=== PATIENT | male | born 1970 | race Caucasian/White ===

== ENCOUNTER 2016-10-11 15:08 | Day surgery (SDC) | payer OTHER ==
--- NOTE | 2016-10-11 08:51 | HP ---
ADMISSION DIAGNOSIS: Lesion right upper lip. ANTICIPATED PROCEDURE: Excision. 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 PAST MEDICAL HISTORY: ALLERGIES: None. MEDICATIONS: Multiple. SURGERIES: Tonsillectomy. SOCIAL HISTORY: One pack per day. ETOH negative. FAMILY HISTORY: Negative. REVIEW OF SYSTEMS: Diabetes, hypertension, cholesterol. PHYSICAL EXAMINATION: VITAL SIGNS: Normal. CHEST: Clear. COR: Regular. SKIN: Lesion just above the right upper lip coming down to the right upper lip. PLAN: Resection.
[~2016-10-11 15:08] MED LIST: APRESOLINE 20 MG/ML INJ IV ONE; BREVIBLOC 100 MG/10 ML IV ONE; DIPRIVAN 200 MG/20 ML IV ONE; Decadron 4 MG INJ IV ONE; Lactated Ringers 1,000 ML IV ONE; Quelicin Fliptop 200 MG/10 ML IV ONE; SUBLIMAZE 100 MCG/2 ML IV ONE; Sensorcaine 0.25% 10 ML ONE; TORAdol 30 mg Injection IV ONE; Zofran 4 MG/2 ML VIAL IV ONE
[2016-10-11] MEDS ORDERED: CEFAZOLIN 2 GM-D5W BAG** 50 ML IV ONE (15:33)
[2016-10-11] MEDS ORDERED: Lactated Ringers 1,000 ML IV SCH (16:00)
[2016-10-11] MEDS ORDERED: Sensorcaine 0.25% 10 ML ONE (16:48)
[2016-10-11] MEDS ORDERED: SUBLIMAZE 100 MCG/2 ML ONE (18:26)
[2016-10-11] MEDS ORDERED: Bactroban OINTMENT ONE (19:08)
[2016-10-11] MEDS ORDERED: Zofran 4 MG/2 ML VIAL ONE (19:08)
[2016-10-11] MEDS ORDERED: Zofran 4 MG/2 ML VIAL IV PRN (19:14)
[2016-10-11 19:21] VITALS: PULSE 90; O2SAT 93
[2016-10-11 19:41] VITALS: BP 123/61
--- NOTE | 2016-10-12 13:00 | OP ---
SURGERY DATE/TIME: 10/11/20161739 PREOPERATIVE DIAGNOSIS: A 2 cm lesion right upper lip possibly malignant. POSTOPERATIVE DIAGNOSIS: A 2 cm lesion right upper lip possibly malignant. PROCEDURE: Elliptical excision 3.5 x 2.5 cm with closure. SURGEON: Joshua Zelaya M.D. ANESTHESIA: General. COMPLICATIONS: None. CONDITION: Stable. INDICATION: A patient requiring the above stated resection. DESCRIPTION OF PROCEDURE: Taken to surgery. General anesthetic. Routine prep and drape. Time out performed. It was elliptically marked to along skin line as possible. Taken sharply and with electrocautery. It was then mobilized and then reapproximated with simple interrupted suture #4-0 Prolene. Satisfactory cosmesis was present. The lesion was tagged at 12:00 which was 12:00 on the specimen. The patient tolerated the procedure satisfactorily. Findings discussed with the family in the waiting room.
== END 2016-10-11 19:50 | disposition home or self-care (01) ==
LOC: SDC 15:08
PROVIDERS: ATTEND Surgery
PROC: 0CB0XZX Excision of Upper Lip, External Approach, Diagnostic (ICD-10-PCS; principal; 2016-10-11)
DX: K13.0 Diseases of lips (principal); R22.9 Localized swelling, mass and lump, unspecified
CPT/HCPCS: 00300; 36415; 82962; 88305; J0330; J0360; J0690; J1100; J1885; J2405; J2704; J3010; A9270-GY